=== PATIENT | female | born 1990 | race Hispanic/Latino ===

== ENCOUNTER 2024-05-15 02:36 | Emergency (ER) | payer OTHER, SELFPAY ==
[2024-05-15 03:02] LABS: Bilirubin Neg (Negative); Blood, Urine Negative (Negative); Clarity Clear (Clear); Glucose, Urine (Dipstick) Normal (Negative); Ketone, Urine Negative (Negative); Leukocyte 25 (Negative); Nitrite Negative (Negative); Protein, Urine (Dipstick) 15 mg/dl (Neg-Trace)
[2024-05-15 03:03] LABS: Pregnancy Test - Urine (BHCG) Negative (Negative); Pregu Control Background? CLEAR/WHITE (CLR/WHITE); Pregu Control Bar Appear? YES (CONTROL BAR)
[2024-05-15 03:13] LABS: Bacteria/HPF 1+ HPF (None Seen); CAUTI Indications for Culture Pelvic or flank pain; RBC/HPF 0-3 HPF (0-3)
[2024-05-15 03:14] LABS: Mucous/LPF Few LPF (<2+); Urine Culture Reflex No No
[2024-05-15] MEDS ORDERED: Cyclobenzaprine 10 MG TAB ONE (03:24)
[2024-05-15] MEDS ORDERED: Acetaminophen 500 MG TAB ONE (03:24)
[2024-05-15] MEDS ORDERED: Ketorolac Tromethamine 30 MG (1 mL) VIAL ONE (03:24)
== END 2024-05-15 03:28 | disposition home or self-care (01) ==
LOC: CSHERS 02:36
DX: M62.830 Muscle spasm of back (principal); X50.1XXA Overexertion from prolonged static or awkward postures, initial encounter
CPT/HCPCS: 81001; 81025; 96372; 99283; J1885

== ENCOUNTER 2024-05-20 18:31 | Emergency (ER) | payer SELFPAY ==
[2024-05-20] MEDS ORDERED: Ketorolac Tromethamine 30 MG (1 mL) VIAL ONE (19:10)
[2024-05-20] MEDS ORDERED: predniSONE 20 MG TAB ONE (19:11)
== END 2024-05-20 19:48 ==
LOC: CSHERS 18:31
DX: B34.9 Viral infection, unspecified (principal); I10 Essential (primary) hypertension
CPT/HCPCS: 87428; 96372; 99284; J1885; J7512

== ENCOUNTER 2024-05-31 11:30 | Emergency (ER) | payer SELFPAY ==
[2024-05-31] MEDS ORDERED: Cefdinir 300 MG CAP ONE (12:15)
[2024-05-31] MEDS ORDERED: Azithromycin 250 MG TAB ONE (12:15)
== END 2024-05-31 12:36 | disposition home or self-care (01) ==
LOC: CSHERS 11:30
DX: J18.9 Pneumonia, unspecified organism (principal); R05.9 Cough, unspecified
CPT/HCPCS: 71046